=== PATIENT | female | born 1980 | race Caucasian/White ===

== ENCOUNTER 2022-04-25 16:37 | Emergency (ER) | payer BC ==
[~2022-04-25] VITALS: Ht 170.2 cm; Wt 77.1 kg
[2022-04-25 18:58] LABS: BASOPHILS % 0.4 % (0.0-1.0); EOSINOPHILS % 0.4 % (0.0-6.0); HEMATOCRIT 45.9 % (34.2-44.1); HEMOGLOBIN 13.9 g/dL (12.0-16.0); LYMPHOCYTES # (AUTO) 1.9 (1.0-3.2); MEAN CORPUSCULAR HEMOGLOBIN 27.4 pg (28-32); MEAN CORPUSCULAR HGB CONC 30.3 g/dL (31-35); MEAN CORPUSCULAR VOLUME 90.4 fL (81-99); MONOCYTES # (AUTO) 0.4 (0.2-0.8); MONOCYTES % 4.6 % (4.4-11.3); NEUTROPHILS % 71.4 % (38.7-80.0); PLATELET COUNT 209 x10e3/uL (140-360); RED BLOOD COUNT 5.08 x10e6/uL (3.6-5.1); RED CELL DISTRIBUTION WIDTH 14.4 % (11.7-14.4)
[2022-04-25 19:00] LABS: CLARITY,URINE CLEAR (CLEAR); COLOR,URINE YELLOW (YELLOW); KETONES,URINE NEGATIVE (NEGATIVE); LEUKOCYTE ESTERASE ,URINE NEGATIVE (NEGATIVE); NITRITE,URINE NEGATIVE (NEGATIVE); PROTEIN,URINE DIPSTICK NEGATIVE (NEGATIVE); URINE UROBILINOGEN 0.2 mg/dL (0.2 - 1)
[2022-04-25 19:08] LABS: INR 0.97; PARTIAL THROMBOPLASTIN TIME 29.9 seconds (23.8-35.5); PROTHROMBIN TIME 13.1 seconds (11.9-14.5); WBC,URINE (MAN) 0-5 /HPF (0-5)
[2022-04-25] MEDS ORDERED: KETOROLAC TROMETHAMINE 30 MG/ML VIAL IV ONE (19:10)
[2022-04-25 19:15] LABS: ALANINE AMINOTRANSFERASE 37 IU/L (0-55); ALBUMIN 4.3 g/dL (3.5-5.0); ALBUMIN/GLOBULIN RATIO 1.1 (0.8-2.0); ALKALINE PHOSPHATASE 165 IU/L (40-150); ANION GAP 16.8 mmol/L (8-16); BLOOD UREA NITROGEN 6 mg/dL (7-26); BUN/CREATININE RATIO 8 (6-25); CALCIUM 9.8 mg/dL (8.4-10.2); CARBON DIOXIDE 23 mmol/L (22-29); CHLORIDE 108 mmol/L (98-107); CREATINE KINASE 36 IU/L (29-168); CREATININE, SERUM 0.75 mg/dL (0.57-1.11); GLUCOSE 97 mg/dL (74-118); POTASSIUM 3.8 mmol/L (3.5-5.1); SODIUM 144 mmol/L (136-145)
[2022-04-25] MEDS ORDERED: KETOROLAC TROMETHAMINE 60 MG/2 ML VIAL IM ONE (19:15)
[2022-04-25] MEDS ORDERED: ORPHENADRINE CITRATE 30 MG/ML VIAL IM ONE (19:15)
== END 2022-04-25 19:46 | disposition home or self-care (01) ==
LOC: ER 17:05
DX: M54.50 Low back pain, unspecified (principal); G89.29 Other chronic pain; I10 Essential (primary) hypertension; F17.210 Nicotine dependence, cigarettes, uncomplicated
CPT/HCPCS: 36415; 80053; 81001; 81025; 82550; 82553; 84484; 85025; 85610; 85730; 99283; J1885; J2360